=== PATIENT | female | born 1995 | race African-American/Black ===

== ENCOUNTER 2017-01-02 15:02 | Emergency (ER) | payer OTHER, MEDICAID ==
[~2017-01-02] VITALS: Ht 170.2 cm; Wt 75.0 kg
[~2017-01-02 15:02] MED LIST: CIPR500T4 PO; DEPO150I IM; FLUO-1 OR; PHEN-426 PO
[2017-01-02 15:29] VITALS: BP 142/80; PULSE 109; RESP 22; O2SAT 100
[2017-01-02] MEDS ORDERED: LORazepam 0.5 MG TAB PO ONE (15:30)
[2017-01-02 15:36] VITALS: BP 142/80; PULSE 115; RESP 20; TEMP 98.3; O2SAT 100
--- NOTE | 2017-01-02 15:43 | PD ---
HPI Chief Complaint: Psychiatric Symptoms Time Seen by Provider: 15:40 Travel History International Travel<30 days: No Contact w/Intl Traveler<30days: No Traveled to known affect area: No History of Present Illness HPI 21-year-old female that presents to the ED for evaluation of psych. Patient comes here under Alves act for evaluation of this. Patient states that she doesn't know why she is here. Patient is crying on the room. Per Alves act patient apparently made a statement in social media that she wanted to "end it all". Apparently her boss at the [facility] noticed this post and he called the police. Police went into the restaurant and Alves acted the patient. Patient denies any history of depression or suicidal ideation. Patient is clearly interiors on examination. Denies any medical issues. No other medical complaints. Most of the history is obtained from the Alves act as patient does not know what happened. From the Alves acted apparently patient made the statements in relation to loosing a relationship recently. PFSH Past Medical History ADHD: No Depression: Yes Cancer: No Cardiovascular Problems: No Diabetes: No Diminished Hearing: No Musculoskeletal: Yes (knee pain) Psychiatric: Yes (depression-not treated previously ) Immunizations Current: Yes Migraines: Yes (very rare per mx ) Seizures: No Thyroid Disease: No Ulcer: No Tetanus Vaccination: > 5 Years Influenza Vaccination: No ?: Not LMP: 12/08/16 Menopausal: No : 0 Past Surgical History Surgical History: No Previous Surgery Other Surgery: No Social History Alcohol Use: No Tobacco Use: No Substance Use: No Allergies-Medications (Allergen,Severity, Reaction): Coded Allergies: No Known Allergies (Verified , 01/02/17) Reported Meds & Prescriptions Reported Meds & Active Scripts Active No Active Prescriptions or Reported Medications Review of Systems Except as stated in HPI: all other systems reviewed are Neg Physical Exam Narrative GENERAL: SKIN: Warm and dry. HEAD: Atraumatic. Normocephalic. EYES: Pupils equal and round. No scleral icterus. No injection or drainage. ENT: No nasal bleeding or discharge. Mucous membranes pink and moist. Tongue is midline. No uvula deviation NECK: Trachea midline. No JVD. CARDIOVASCULAR: Regular rate and rhythm. No murmurs, S3, S4. RESPIRATORY: No accessory muscle use. Clear to auscultation. Breath sounds equal bilaterally. GASTROINTESTINAL: Abdomen soft, non-tender, nondistended. Hepatic and splenic margins not palpable. MUSCULOSKELETAL: Extremities without clubbing, cyanosis, or edema. No obvious deformities. Full range of motion of the upper and lower extremities bilaterally. 2+ pulses bilaterally. NEUROLOGICAL: Awake and alert. No obvious cranial nerve deficits. Motor grossly within normal limits. Five out of 5 muscle strength in the arms and legs. Normal speech. PSYCHIATRIC: Anxious mood and affect; insight and judgment normal. Data Data Last Documented VS Vital Signs Date Time Temp Pulse Resp B/P Pulse Ox O2 Delivery O2 Flow Rate FiO2 01/02/17 15:36 98.3 115 20 142/80 100 01/02/17 15:29 Room Air Orders Complete Blood Count With Diff (01/02/17 15:12) Comprehensive Metabolic Panel (01/02/17 15:12) Ed Urine Pregnancytest Poc (01/02/17 15:12) Psych Screen (01/02/17 15:12) Drug Screen, Random Urine (01/02/17 15:12) Alcohol (Ethanol) (01/02/17 15:12) Salicylates (Aspirin) (01/02/17 15:12) Tylenol (Acetaminophen) (01/02/17 15:12) Lorazepam (Ativan) (01/02/17 15:30) Labs Laboratory Tests Test 01/02/17 15:45 White Blood Count 12.0 TH/MM3 Red Blood Count 4.01 MIL/MM3 Hemoglobin 11.7 GM/DL Hematocrit 34.4 % Mean Corpuscular Volume 85.7 FL Mean Corpuscular Hemoglobin 29.1 PG Mean Corpuscular Hemoglobin 33.9 % Concent Red Cell Distribution Width 13.4 % Platelet Count 221 TH/MM3 Mean Platelet Volume 9.0 FL Neutrophils (%) (Auto) 77.3 % Lymphocytes (%) (Auto) 15.0 % Monocytes (%) (Auto) 7.0 % Eosinophils (%) (Auto) 0.3 % Basophils (%) (Auto) 0.4 % Neutrophils # (Auto) 9.3 TH/MM3 Lymphocytes # (Auto) 1.8 TH/MM3 Monocytes # (Auto) 0.8 TH/MM3 Eosinophils # (Auto) 0.0 TH/MM3 Basophils # (Auto) 0.0 TH/MM3 CBC Comment DIFF FINAL Differential Comment MDM Medical Decision Making Medical Screen Exam Complete: Yes Emergency Medical Condition: Yes Medical Record Reviewed: Yes Interpretation(s) CBC Diagram 01/02/17 15:45 Differential Diagnosis Depression versus suicidal ideation versus anxiety versus adjustment disorder versus mood disorder versus bipolar disorder versus schizophrenia versus paranoid disorder versus psychosis versus substance abuse versus alcohol abuse versus alcohol induced psychosis versus homicidality addition versus cutting versus personality disorder Narrative Course 21-year-old female that presents to the ED for evaluation of Alves act. Patient was properly examined and was found to have no signs of acute medical distress. Labs were drawn. Patient was medically cleared. Okay to be seen by psych. Mental health screening was discussed with the patient. Diagnosis Primary Impression: Suicidal ideation Scripts No Active Prescriptions or Reported Meds Tristan Machuca January 02, 2017 15:43
[2017-01-02 16:07] LABS: AUTOMATED NEUTROPHIL # 9.3 TH/MM3 (1.8-7.7); BASOPHIL % 0.4 % (0.0-2.0); EOSINOPHIL % 0.3 % (0.0-4.0); HEMATOCRIT 34.4 % (35.0-46.0); HEMO FLAGS DIFF FINAL; LYMPHOCYTE # 1.8 TH/MM3 (1.0-4.8); MEAN CELL VOLUME 85.7 FL (80.0-100.0); MEAN CORPUSCULAR HEMOGLOBIN 29.1 PG (27.0-34.0); MEAN CORPUSCULAR HGB CONC 33.9 % (32.0-36.0); NEUT % 77.3 % (16.0-70.0); PLATELET COUNT 221 TH/MM3 (150-450); RED BLOOD COUNT 4.01 MIL/MM3 (4.00-5.30); RED CELL DISTRIBUTION WIDTH 13.4 % (11.6-17.2)
[2017-01-02 16:32] LABS: ANION GAP 7 MEQ/L (5-15); AST (GOT) 19 U/L (16-38); BICARBONATE 26.6 MEQ/L (21.0-32.0); BLOOD UREA NITROGEN 6 MG/DL (7-18); CHLORIDE 105 MEQ/L (98-107); GLOMERULAR FILTRATION RATE 117 ML/MIN (>89); POTASSIUM 3.7 MEQ/L (3.5-5.1); SODIUM (NA) 139 MEQ/L (136-145)
[2017-01-02 16:35] LABS: ACETAMINOPHEN LESS THAN 2.0 MCG/ML (10.0-30.0); ALKALINE PHOSPHATASE 82 U/L (45-117); ALT (GPT) 24 U/L (9-42); TOTAL BILIRUBIN ADULT 0.6 MG/DL (0.2-1.0)
[2017-01-02 17:44] LABS: BACTERIA, URINE FEW /hpf; BLOOD, URINE NEG (NEG); COMMENT (UR) CULTURE INDICATED; CULTURE IF INDICATED CULTURE INDICATED; GLUCOSE,URINE NEG (NEG); KETONE, URINE NEG (NEG); NITRITE,URINE NEG (NEG); SQUAMOUS EPITHELIAL CELL URINE 18 /hpf (0-5); URINE COLOR LIGHT-YELLOW (YELLW/STRAW)
[2017-01-02 17:46] LABS: AMPHETAMINE, URINE NEG (NEG); BARBITURATES, URINE NEG (NEG); COCAINE, URINE NEG (NEG)
[2017-01-02] MEDS ORDERED: BACT800T5 PO (17:56)
[2017-01-02] MEDS ORDERED: SULFAMETHOXAZOLE-TRIMETHOPRIM DS 800-160 MG TAB PO ONE (18:00)
[2017-01-02 18:30] VITALS: BP 139/66; PULSE 74; RESP 18; O2SAT 100
[2017-01-02 23:39] VITALS: BP 133/77; PULSE 109; RESP 18; O2SAT 100
[2017-01-03 02:30] VITALS: BP 120/69; PULSE 92; RESP 18; O2SAT 99
[2017-01-03 06:12] VITALS: BP 121/60; PULSE 99; RESP 18; O2SAT 100
--- NOTE | 2017-01-03 09:21 | PD ---
History of Present Illness Chief Complaint: Psychiatric Symptoms Time Seen by Provider: 09:15 Travel History International Travel<30 Days: No Contact w/Intl Traveler<30days: No Known affected area: No Legal Status Legal Status: Alves Act Alves Act Signed By: Alexa Mccabe History of Present Illness: History of Present Illness HPI 21-year-old female with history of depression that presents to the ED under a BA for evaluation of psych. The report alleges that she posted statements on social medica that said " I should just end it all". Apparently her boss at the [facility] [facility] noticed this post and he called the police. Patient was monitored in j pod and she presented no suicidality and maintained behavioral control. EMR is reviewed. There is one previous admission to [facility] at age [age] years old. Current toxicology is negative . Patient is seen in J pod. awake , alert, engaging and calm. Appears stated age. she denies any hallucinations and does not appear to be responding to internal stimuli. There are no delusions or paranoia. Mood is mildly depressed as per her report. Patient does not appear significantly depressed. She denies any suicidal or homicidal ideation, intent or plan. She reiterates that the statement on social media was in reference to her ending a relationship and that it was not a suicidal statement. She has not made any attempts at harming herself. She is requesting discharge as she wants to be able to go to work. She does report a hx of SIB but has not recently engaged in that behavior. PFSH Past Medical History ADHD: No Depression: Yes Cancer: No Cardiovascular Problems: No Diabetes: No Diminished Hearing: No Musculoskeletal: Yes (knee pain) Psychiatric: Yes (depression-not treated previously ) Immunizations Current: Yes Migraines: Yes (very rare per mx ) Seizures: No Thyroid Disease: No Ulcer: No Tetanus Vaccination: > 5 Years Influenza Vaccination: No ?: Not LMP: 12/08/16 Menopausal: No : 0 Past Surgical History Surgical History: No Previous Surgery Other Surgery: No Psychiatric History Psychiatric History Hx Psychiatric Treatment: Tretaed at age 15 years for depression. Currnetly not receiving treatment History of Inpatient Treatment: Yes Guns or firearms in home: No Social History Single female. Was living with her boyfriend. recently homeless. has been couch surfing with some friends. Hx Alcohol Use: No Hx Tobacco Use: No Hx Substance Use: No Allergies-Medications (Allergen,Severity, Reaction): Coded Allergies: No Known Allergies (Verified , 01/02/17) Reported Meds & Prescriptions Reported Meds & Active Scripts Active Bactrim DS (Sulfamethoxazole-Trimethoprim) 800-160 Mg Tab 1 Tab PO BID 5 Days Review of Systems Except as stated in HPI: all other systems reviewed are Neg Exam Alert: Yes Mena: Person (ox4) Mood: Calm Affect: Appropriate Speech: Clear, Logical Eye Contact: Normal Memory Intact: Comment (no impairment) Hallucinations: Other (negative ) Delusions: No Suicidal: Ideation (negative) Homicidal: Ideation (negative) Insight/Judgement fair. not impaired. MDM Medical Decision Making Medical Record Reviewed: Yes Assessment/Plan 21 year old single female who is under a BA for having made statements thru social media indicating that she was wanting " to end it all". The patient denies nay suicidal or homicidal ideation, no psychosis and no meghan. At this time she does not present acute risk to self or others and is requesting discharge. Does not meet BA criteria. She is offered resources for homelessness but claims she has these resources. Orders Complete Blood Count With Diff (01/02/17 15:12) Comprehensive Metabolic Panel (01/02/17 15:12) Ed Urine Pregnancytest Poc (01/02/17 15:12) Psych Screen (01/02/17 15:12) Drug Screen, Random Urine (01/02/17 15:12) Alcohol (Ethanol) (01/02/17 15:12) Salicylates (Aspirin) (01/02/17 15:12) Tylenol (Acetaminophen) (01/02/17 15:12) Lorazepam (Ativan) (01/02/17 15:30) Urinalysis - C+S If Indicated (01/02/17 17:01) Urine Culture (01/02/17 16:55) Sulfamet-Trimeth Ds 800-160 Mg (Bactrim (01/02/17 18:00) Diet Regular Basic (01/03/17 Breakfast) Results Vital Signs Date Time Temp Pulse Resp B/P Pulse Ox O2 Delivery O2 Flow Rate FiO2 01/03/17 06:12 99 18 121/60 100 01/03/17 02:30 92 18 120/69 99 01/02/17 23:39 109 18 133/77 100 01/02/17 18:30 74 18 139/66 100 Room Air 01/02/17 15:36 98.3 115 20 142/80 100 01/02/17 15:29 123 01/02/17 15:29 109 22 142/80 100 Room Air Laboratory Tests Test 01/02/17 01/02/17 15:45 16:55 White Blood Count 12.0 Red Blood Count 4.01 Hemoglobin 11.7 Hematocrit 34.4 Mean Corpuscular Volume 85.7 Mean Corpuscular Hemoglobin 29.1 Mean Corpuscular Hemoglobin 33.9 Concent Red Cell Distribution Width 13.4 Platelet Count 221 Mean Platelet Volume 9.0 Neutrophils (%) (Auto) 77.3 Lymphocytes (%) (Auto) 15.0 Monocytes (%) (Auto) 7.0 Eosinophils (%) (Auto) 0.3 Basophils (%) (Auto) 0.4 Neutrophils # (Auto) 9.3 Lymphocytes # (Auto) 1.8 Monocytes # (Auto) 0.8 Eosinophils # (Auto) 0.0 Basophils # (Auto) 0.0 CBC Comment DIFF FINAL Differential Comment Sodium Level 139 Potassium Level 3.7 Chloride Level 105 Carbon Dioxide Level 26.6 Anion Gap 7 Blood Urea Nitrogen 6 Creatinine 0.77 Estimat Glomerular Filtration 117 Rate Random Glucose 89 Calcium Level 8.6 Total Bilirubin 0.6 Aspartate Amino Transf 19 (AST/SGOT) Alanine Aminotransferase 24 (ALT/SGPT) Alkaline Phosphatase 82 Total Protein 7.8 Albumin 4.1 Salicylates Level LESS THAN 1.7 Acetaminophen Level LESS THAN 2.0 Ethyl Alcohol Level LESS THAN 3 Urine Color LIGHT-YELLOW Urine Turbidity HAZY Urine pH 7.0 Urine Specific [place] 1.005 Urine Protein NEG Urine Glucose (UA) NEG Urine Ketones NEG Urine Occult Blood NEG Urine Nitrite NEG Urine Bilirubin NEG Urine Urobilinogen LESS THAN 2.0 Urine Leukocyte Esterase LARGE Urine WBC 23 Urine Squamous Epithelial 18 Cells Urine Amorphous Sediment RARE Urine Bacteria FEW Urine Yeast (Budding) RARE Microscopic Urinalysis Comment CULTURE INDICATED Urine Opiates Screen NEG Urine Barbiturates Screen NEG Urine Amphetamines Screen NEG Urine Benzodiazepines Screen NEG Urine Cocaine Screen NEG Urine Cannabinoids Screen NEG Date/Time Procedure Status Source Growth 01/02/17 16:55 Urine Culture Received Urine Clean Catch Pending Diagnosis Primary Impression: Adjustment disorder Psychiatrically Cleared: Yes Med/ Other Pt Specific Info: No Meds Exist/No RX given Prescriptions Sulfamethoxazole-Trimethoprim (Bactrim DS)800-160 Mg Tab1 Tab PO BID 5 Days Prov:Wei John MD 01/02/17 Disposition: 01 DISCHARGE HOME Condition: Stable Problem Qualifiers Primary Impression: Adjustment disorder Qualified Code: F43.21 - Adjustment disorder with depressed mood Kandi Sanchez [employer] January 03, 2017 09:21
== END 2017-01-03 09:30 | disposition home or self-care (01) ==
LOC: NEDAMB 15:02 → NEPJ 01-03 09:30
DX: R45.851 Suicidal ideations (principal); R82.90 Unspecified abnormal findings in urine
CPT/HCPCS: 80053; 80307; 81001; 84703; 85025; 87086; 99284

== ENCOUNTER 2017-01-13 19:02 | Emergency (ER) | payer MEDICAID ==
[~2017-01-13] VITALS: Ht 170.2 cm; Wt 70.0 kg
[~2017-01-13 19:02] MED LIST changes: +BACT800T5 PO; -CIPR500T4 PO; -DEPO150I IM; -FLUO-1 OR; -PHEN-426 PO
[2017-01-13 19:04] VITALS: BP 138/77; PULSE 75; RESP 16; TEMP 98.7; O2SAT 100
--- NOTE | 2017-01-13 20:30 | PD ---
HPI Chief Complaint: Abdominal Pain Time Seen by Provider: 20:29 Travel History International Travel<30 days: No Contact w/Intl Traveler<30days: No Traveled to known affect area: No History of Present Illness HPI 21-year-old female came to the emergency room with history of vomiting and some abdominal cramping for past 3 days. Patient says there has been some diarrhea as well and her boyfriend has the same symptoms. She works at [employer] and her work sent her here because she was throwing up at work. Patient says her last vomit was 4 hours ago after she ate something. She points to the left lower quadrant as the location of her pain. Vital signs are stable. She is otherwise a healthy person. Upon asking she said there was no way she could be . Patient says she has been on Bactrim for past 4 days for UTI. This prescription was given to her from this emergency room. PFSH Past Medical History Narrative Medical List of her past medical, surgical, social and family history reviewed from the nursing Medical History: Denies Significant Hx ADHD: No Depression: Yes Cancer: No Cardiovascular Problems: No Diabetes: No Diminished Hearing: No Musculoskeletal: Yes (knee pain) Psychiatric: Yes (depression-not treated previously ) Immunizations Current: Yes Migraines: Yes (very rare per mx ) Seizures: No Thyroid Disease: No Ulcer: No ?: Unknown LMP: 01/05/17 Menopausal: No : 0 Past Surgical History Surgical History: No Previous Surgery Other Surgery: No Social History Alcohol Use: No Tobacco Use: No Substance Use: No Allergies-Medications (Allergen,Severity, Reaction): Coded Allergies: No Known Allergies (Verified , 01/02/17) Comments No known drug allergies. Reported Meds & Prescriptions Reported Meds & Active Scripts Active Zofran Odt (Ondansetron Odt) 4 Mg Tab 4 Mg SL Q6HR PRN Bactrim DS (Sulfamethoxazole-Trimethoprim) 800-160 Mg Tab 1 Tab PO BID 5 Days Narrative Medication List of her home medications reviewed from the nursing note. Review of Systems Except as stated in HPI: all other systems reviewed are Neg Physical Exam Narrative GENERAL: Awake, alert, no obvious distress SKIN: Focused skin assessment warm/dry. HEAD: Atraumatic. Normocephalic. EYES: Pupils equal and round. No scleral icterus. No injection or drainage. ENT: No nasal bleeding or discharge. Mucous membranes pink and moist. NECK: Trachea midline. No JVD. CARDIOVASCULAR: Regular rate and rhythm. No murmur appreciated. RESPIRATORY: No accessory muscle use. Clear to auscultation. Breath sounds equal bilaterally. GASTROINTESTINAL: Abdomen soft, mild periumbilical tenderness upon deep palpation, nondistended. Hepatic and splenic margins not palpable. MUSCULOSKELETAL: No obvious deformities. No clubbing. No cyanosis. No edema. NEUROLOGICAL: Awake and alert. No obvious cranial nerve deficits. Motor grossly within normal limits. Normal speech. PSYCHIATRIC: Appropriate mood and affect; insight and judgment normal. Data Data Last Documented VS Vital Signs Date Time Temp Pulse Resp B/P Pulse Ox O2 Delivery O2 Flow Rate FiO2 01/13/17 19:04 98.7 75 16 138/77 100 Orders Ondansetron Odt (Zofran Odt) (01/13/17 20:45) [facility] Medical Decision Making Medical Screen Exam Complete: Yes Emergency Medical Condition: Yes Medical Record Reviewed: Yes Differential Diagnosis Acute gastritis, viral illness, side effect from Bactrim Narrative Course 8:40 PM I looked at her urine culture report from 01/02/2017. It shows mixed vickie. I've asked her to stop taking the Bactrim. I will give her dose of Zofran and she'll be discharged home. In my opinion should probably has a viral infection. Procedures EKG Prior to Arrival: No Diagnosis Primary Impression: Acute gastritis Qualified Code: K29.00 - Acute gastritis without hemorrhage, unspecified gastritis type Additional Impression: Viral illness Referrals: Primary Care Physician Additional Instructions: Please stop taking Bactrim since he does not have UTI. Take the antibiotic as per the prescription direction. Return to the ER if the condition worsens or any other new concerns. Otherwise follow-up with your primary care. Med/Other Pt SpecificInfo: Prescription(s) given Scripts Ondansetron Odt (Zofran Odt)4 Mg Tab4 Mg SL Q6HR PRN (Nausea/Vomiting) #12 TAB Ref 0 Prov:Zay Jarquin MD 01/13/17 Disposition: 01 DISCHARGE HOME Condition: Stable Zay Jarquin MD Jan 13, 2017 20:30
[2017-01-13] MEDS ORDERED: ZOFR4TAB3 SL (20:42)
[2017-01-13] MEDS ORDERED: ONDANSETRON ODT 4 MG TAB PO ONE (20:45)
== END 2017-01-13 21:33 | disposition home or self-care (01) ==
LOC: NEPD 19:02
DX: K29.00 Acute gastritis without bleeding (principal); B34.9 Viral infection, unspecified; R10.9 Unspecified abdominal pain
CPT/HCPCS: 99283